=== PATIENT | male | born 1985 | race Caucasian/White ===

== ENCOUNTER 2020-05-09 05:33 | Outpatient (RCR) | payer MEDICAID ==
[~2020-05-09] VITALS: Ht 170.2 cm; Wt 61.4 kg
[~2020-05-09 05:33] MED LIST: BUSP10TA95 PO; QUET100T PO
[2020-05-12] MEDS ORDERED: HYDR-4226 PO (12:27)
== END 2020-05-09 09:28 | disposition home or self-care (01) ==
LOC: PREOP 05:33
PROVIDERS: ATTEND Surgery
DX: Z01.812 Encounter for preprocedural laboratory examination (principal); K40.90 Unilateral inguinal hernia, without obstruction or gangrene, not specified as recurrent; Z20.822 Contact with and (suspected) exposure to COVID-19
CPT/HCPCS: 87635

== ENCOUNTER 2020-05-12 09:25 | Day surgery (SDC) | payer MEDICAID ==
[2020-05-12] VITALS (12 sets, daily range): BP systolic 97–157; BP diastolic 60–106
[~2020-05-12] VITALS: Ht 170.2 cm; Wt 61.4 kg
[2020-05-12] MEDS ORDERED: LIDOCAINE/EPI 1%-1:100,000 (XYLOCAINE) 50 ML ONE (09:47)
[2020-05-12] MEDS ORDERED: ceFAZolin 2 GM IV Premixed 50 ML IV ONE (10:00)
[2020-05-12] MEDS ORDERED: SEVOFLURANE (ULTANE) 15 ML INHAL SOLN ONE (10:02)
[2020-05-12] MEDS ORDERED: proPOfol 200 MG/20 ML (DIPRIVAN) VIAL IV ONE (10:02)
[2020-05-12] MEDS ORDERED: GLYCOPYRROLATE 0.2 MG/ML (ROBINUL) 2 ML VIAL ONE ×2 (10:02→12:23)
[2020-05-12] MEDS ORDERED: fentaNYL INJECTION 100 MCG/2 ML AMP ONE (10:02)
[2020-05-12] MEDS ORDERED: LIDOCAINE PF 2% 5 ML (XYLOCAINE) VIAL ONE (10:02)
[2020-05-12] MEDS ORDERED: ROCURONIUM 10 MG/ML 5 ML SYRINGE IV ONE (10:02)
[2020-05-12] MEDS ORDERED: NEOSTIGMINE 3 MG/3 ML VIAL ONE ×3 (10:02→12:23)
[2020-05-12] MEDS ORDERED: ONDANSETRON 4 MG/2 ML (SDV) Z0FRAN ONE ×2 (10:02→12:23)
[2020-05-12] MEDS ORDERED: MIDAZOLAM 2 MG/2 ML (VERSED) VIAL ONE (10:03)
[2020-05-12] MEDS: LACTATED RINGERS 1,000 ML IV PRN ×3 (10:10→12:34)
[2020-05-12 10:40] LABS: BASOPHILS # (AUTO) 0.1 10^3/uL (0.0-0.1); BASOPHILS % (AUTO) 1 % (0-10); EOSINOPHILS # (AUTO) 0.1 10^3/uL (0.0-0.3); EOSINOPHILS % (AUTO) 2 % (0-10); HEMATOCRIT 46 % (40-54); HEMOGLOBIN 15.4 g/dL (13.3-17.7); LYMPHOCYTES # (AUTO) 2.5 10^3/uL (1.0-4.0); LYMPHOCYTES % (AUTO) 34 % (12-44); MEAN CORPUSCULAR HEMOGLOBIN 30 pg (25-34); MEAN CORPUSCULAR HGB CONC 34 g/dL (32-36); MEAN CORPUSCULAR VOLUME 89 fL (80-99); MONOCYTES # (AUTO) 0.6 10^3/uL (0.0-1.0); MONOCYTES % (AUTO) 8 % (0-12); NEUTROPHILS # (AUTO) 4.1 10^3/uL (1.8-7.8); NEUTROPHILS % (AUTO) 55 % (42-75); PLATELET COUNT 415 10^3/uL (130-400); WHITE BLOOD COUNT 7.4 10^3/uL (4.3-11.0)
--- NOTE | 2020-05-12 10:52 | Progress Note-Pre Operative ---
Pre-Operative Progress Note H&P Reviewed The H&P was reviewed, patient examined and no changes noted. Time Seen by Provider: 10:50 Date H&P Reviewed: May 12, 2020 Time H&P Reviewed: 10:50 Pre-Operative Diagnosis: Right inguinal hernia, site marked DORIS SCHMIDT DO May 12, 2020 10:52
[2020-05-12] MEDS ORDERED: HYDROmorphone 2 MG/ML VIAL (DILAUDID) ONE (11:22)
[2020-05-12] MEDS ORDERED: ESMOLOL 100 MG/10 ML (BREVIBLOC) VIAL ONE (11:35)
[2020-05-12] MEDS ORDERED: HYDR-4226 PO (12:27)
--- NOTE | 2020-05-12 12:28 | Discharge Inst-Surgical ---
Discharge Inst-Surgical Depart Medication/Instructions New, Converted or Re-Newed RX: RX Given to Pt/Family Patient Instructions Follow up Appt: Make appointment for 1 week. [phone] Instructions: No lifting greater than 20 pounds. No strenuous activity. May shower in 24 hours, no tub bath or soaking. Use incentive spirometer at home as directed. No Smoking Skin/Wound Care: May remove bandages in am. You need to leave the Dermabond on incision it will fall off on it's own. Symptoms to Report: Appetite Changes, Extremity Discoloration, Numbness/Tingling, Swelling Increased, Bleeding Excessive, Eyesight Changes, Pain Increased, Urine Color Change, Constipation(Persistent), Fever over 101 degree F, Pain/Pressure in chest, Urinating Difficulty, Cough Up/Vomit Blood, Heart Beat Irreg/Pounding, Pain/Pressure in jaw, Cramps in feet or legs, Lightheadedness, Pain/Pressure in shoulder, Diarrhea(Persistent), Memory Changes Suddenly, Questions/Concerns, Weight gain consecutive days, Dizziness/Fainting, Nausea/Vomiting, Shortness of Breath, Weight gain over 2 pounds If questions or concerns contact your physician Or seek help at emergency department. Activity Activity as Tolerated: Yes Activity Instructions: Avoid Stress to Incision Driving Instructions: No Driving/Refer to Dr. Streeter Discharge Diet: No Restrictions Diet After 24 Hours: Clear Liquid if Nauseous If Any Problems/Questions/Issu: Contact Your Physician, Go to Emergency Room Skin/Wound Care Infection Signs and Symptoms: Increased Redness, Foul Odor of Wound, Increased Drainage, Skin Itchy or Has a Rash, Increased Swelling, Temperature Above 101 F Wound Care Comment: heating pad to shoulder or neck tonight for pain Bathing Instructions: Shower Stitches/Catarina/Dermabond Dis: Dermabond Ice Pack: Ice On and Off Site (at incisions as needed for pain) DORIS SCHMIDT DO May 12, 2020 12:28
--- NOTE | 2020-05-12 12:54 | Anesthesia-General Post-Op ---
General Patient Condition Mental Status/LOC: Same as Preop Cardiovascular: Satisfactory Nausea/Vomiting: Absent Respiratory: Satisfactory Pain: Controlled Complications: Absent Post Op Complications Complications None Follow Up Care/Instructions Patient Instructions None needed. Anesthesia/Patient Condition Patient Condition Patient is doing well, no complaints, stable vital signs, no apparent adverse anesthesia problems. No complications reported per nursing. JEANINE SKINNER CRNA May 12, 2020 12:54
[2020-05-12] MEDS ORDERED: MEPERIDINE (DEMEROL) INJ 50 MG/ML IVP ONE (13:00)
[2020-05-12] MEDS ORDERED: morphine INJ 10 MG/ML 1ML (SYR OR VIAL) IVP ONE (13:00)
[2020-05-12] MEDS ORDERED: ONDANSETRON 4 MG/2 ML (SDV) Z0FRAN IVP PRN (13:00)
[2020-05-12] MEDS ORDERED: morphine INJ 10 MG/ML 1ML (SYR OR VIAL) ONE (13:07)
[2020-05-12] MEDS ORDERED: HYDROcodone/APAP 5 MG/325 MG (LORTAB) TAB ONE (13:54)
[2020-05-12] MEDS ORDERED: HYDROcodone/APAP 5 MG/325 MG (LORTAB) TAB PO ONE (14:00)
--- NOTE | 2020-05-12 14:03 | NUR ---
HAS TAKEN PO FLUIDS AND CRACKERS WITHOUT PROBLEM. LORTAB 5/325 MG, ONE TAB, GIVEN PO FOR C/O ABDOMINAL/SURGICAL SITE PAIN RATED 8.
--- NOTE | 2020-05-12 14:24 | Progress Note-Post Operative ---
Post-Operative Progess Note Surgeon (s)/Laryngologist (s) Surgeon DORIS SCHMIDT DO Laryngologist: NIDA Mccartney Pre-Operative Diagnosis Right inguinal hernia, site marked Post-Operative Diagnosis Indirect inguinal hernia Procedure & Operative Findings Date of Procedure 05/12/20 Procedure Performed/Findings FINDINGS: The patient had a right inguinal hernia which was indirect. Pictures were taken. PROCEDURE NOTE: After informed consent was obtained, the patient was brought to the operating room and placed on the operating table in a supine position. He was sterilely prepped and draped in a normal fashion. Local lidocaine was used to infiltrate the skin above the umbilicus. I made an incision with #11 blade, carried down to the skin into subcutaneous tissue and then deepened down the subcutaneous tissue with Bovie electrocautery down to the fascia. Fascia was incised with Bovie electrocautery and bluntly entered the abdomen, swept a finger around, placed 0 Vicryl [id number] suture and placed limited trocar port under direct visualization. Created pneumoperitoneum, able to visualize the hernia and took a picture of this and then placed two 8 mm ports about 10 cm on either side of the midline port using a local lidocaine, 11 blade for stab incision and then advanced the robotic port under direct visualization. Once this was in, I then placed the patient in Trendelenburg and then placed the working instruments, the fenestrated bipolar and the scissors. I first had to come across the peritoneum approximately 8 cm away from the hernia defect, going across laterally starting from midline right at median umbilical ligament. We came across laterally all the way out about 16 cm, possibly more and then carefully dissected the visceral peritoneum away and down and then in the midline, went through the parietal side and dissected down to the pubic tubercle, dissecting this down carefully pushing the peritoneum away, we were able to then visualize the pubic tubercle and Choco's ligament. We went 2 cm posterior and at this point, we then had a critical view of the dissection, able to dissect 2 cm across the midline to the left side, 2 cm posterior to the Choco's ligament, able to then parietalize the vas deferens and spermatic vessels right at the groove between Choco's and iliac vein and able to dissect, make sure there was no peritoneum between those two, able to see the direct hernia space, took a picture of this, looked at the femoral space. No hernia seen. I carefully took out the cord lipoma and could visualize the direct hernia space. Next I looked on the cord and cord structures. I then reduced the hernia sac and could see t he inguinal canal through the indirect space. Next I carried the posterior lateral dissection all the way out and then placed a 10.8 x 16 regular Bard 3DMax mesh. It laid in nicely, covered the hernia defect and all of the area and it was above the peritoneum, sutured it at the pubic tubercle with a 3-0 Vicryl suture and tied this off. Again, this appeared to lay in very nicely. I then brought down the pneumoperitoneum to about 8 mmHg and then started closing the peritoneum. Started laterally and used a 2-0 V-lock barbed suture to start a running stitch to close the peritoneum. This was closed nicely, took a picture of the closure at this point, then removed both needles had switched to a suture otr tanker truck driver from the scissors. The patient was then placed back supine, removed all ports under direct visualization, allowed pneumoperitoneum to escape and then closed the supraumbilical incision, closing the fascia with 0 Vicryl suture previously placed. Copiously irrigated all incisions and then closed the two small 8 mm incisions with two interrupted 4-0 undyed Monocryl subcuticular stitches and closed the supraumbilical incision with three interrupted undyed Monocryl subcuticular stitch. Area was cleaned and dried. Dermabond was placed. The patient tolerated the procedure. The sponge, instrument and needle counts were correct at the end of the case. Anesthesia Type GET Estimated Blood Loss Estimated blood loss (mL): less than 10 ml Specimens/Packing Specimens Removed none DORIS SCHMIDT DO May 12, 2020 14:23
--- NOTE | 2020-05-12 14:45 | NUR ---
REPORTS PAIN LEVEL DECREASING, NOW 4-5. INSTRUCTED ON INCENTIVE SPIROMETRY. UP WITH ASSIST TO BR, VOIDED, AND BACK TO ROOM FOR DISMISSAL. SKIN AFFIX REMAINS INTACT TO LAP ABD SURGICAL SITES, ICE PACK ON.
== END 2020-05-12 15:05 | disposition home or self-care (01) ==
LOC: SDC 09:25
PROVIDERS: ATTEND Surgery
DX: K40.90 Unilateral inguinal hernia, without obstruction or gangrene, not specified as recurrent (principal); F41.9 Anxiety disorder, unspecified; F32.9 Major depressive disorder, single episode, unspecified; F17.210 Nicotine dependence, cigarettes, uncomplicated; Z79.899 Other long term (current) drug therapy; Z80.1 Family history of malignant neoplasm of trachea, bronchus and lung
CPT/HCPCS: 36415; 85025; 87081